=== PATIENT | male | born 1980 | race Caucasian/White ===

== ENCOUNTER 2024-05-21 15:12 | Emergency (ER) | payer SELFPAY ==
[2024-05-21 15:28] VITALS: BP 126/81; PULSE 62; RESP 17; TEMP 98.6; BMI 25.0
[2024-05-21 17:02] LABS: PH,URINE 5.5 (5.0-8.0); URINE APPEARANCE CLEAR; URINE BILIRUBIN NEGATIVE (NEGATIVE); URINE COLOR YELLOW; URINE GLUCOSE (UA) NEGATIVE (NEGATIVE); URINE KETONE NEGATIVE (NEGATIVE); URINE LEUK ESTERASE NEGATIVE (NEGATIVE); URINE NITRITE NEGATIVE (NEGATIVE); URINE PROTEIN NEGATIVE (NEGATIVE); URINE UROBILINOGEN 0.2 mg/dL (0.2-1.0)
[2024-05-21 18:01] LABS: BASO % 0.7 % (0-2.0); EOS % 1.3 % (0-4.5); HEMATOCRIT 43.5 % (35.4-49); HEMOGLOBIN 14.5 GM/dL (11.7-16.9); LYMPH % 26.1 % (8-40); MCH 30.6 pg (25.7-33.7); MCHC 33.4 g/dl (32.0-35.9); MEAN CELL VOLUME 91.8 fl (80-96); MEAN PLT VOLUME 8.3 fl (7.5-11.1); MONO % 5.2 % (3.8-10.2); NEUT % 66.7 % (42.8-82.8); PLATELET COUNT 252 10^3/uL (134-434); RBC 4.74 M/mm3 (4.00-5.60); RDW 13.5 % (11.9-15.9); WHITE BLOOD COUNT 7.7 K/mm3 (4.0-10.0)
[2024-05-21 18:21] LABS: POTASSIUM 3.7 mmol/L (3.5-5.1)
[2024-05-21 18:24] LABS: ALBUMIN 4.3 g/dl (3.4-5.0); BLOOD UREA NITROGEN 14.1 mg/dL (7-18)
[2024-05-21 18:27] LABS: CREATININE 0.9 mg/dL (0.55-1.3)
[2024-05-21 18:28] LABS: BILIRUBIN,TOTAL 0.5 mg/dL (0.2-1); TOT PROT 7.2 g/dl (6.4-8.2)
== END 2024-05-21 22:05 | disposition home or self-care (01) ==
LOC: JER 15:12
DX: I86.1 Scrotal varices (principal); K40.91 Unilateral inguinal hernia, without obstruction or gangrene, recurrent
CPT/HCPCS: 36415; 74177-TC; 76870-TC; 80053; 81003; 83605; 85025; 87086; 87491; 87591; 99285-25; Q9967

== ENCOUNTER 2024-08-08 04:13 | Day surgery (SDC) | payer OTHER ==
[2024-08-06 15:16] VITALS: BMI 23.8
[2024-08-08] MEDS ORDERED: BUPIVACAINE HCL/PF 0.25% (2.5MG/ML) 10 ML VIAL ONE (07:20)
[2024-08-08] MEDS ORDERED: LIDOCAINE HCL/PF 2% SDV 5ML VIAL ONE (07:43)
[2024-08-08] MEDS ORDERED: SUCCINYLCHOLINE CHLORIDE 200 MG/10 ML SYRINGE ONE (07:43)
[2024-08-08] MEDS ORDERED: DEXAMETHASONE SOD PHOSPHATE 4 MG/1 ML VIAL ONE (07:43)
[2024-08-08] MEDS ORDERED: ONDANSETRON 4 MG/2 ML VIAL ONE (07:43)
[2024-08-08] MEDS ORDERED: MIDAZOLAM HCL 2 MG/2 ML SINGLE DOSE VIAL ONE (07:43)
[2024-08-08] MEDS ORDERED: ROCURONIUM BROMIDE 50 MG/5 ML SYRINGE ONE ×2 (07:43→09:39)
[2024-08-08] MEDS ORDERED: PROPOFOL 20 ML ONE (07:43)
[2024-08-08] MEDS: ceFAZolin 2 GRAM PREMIX BAG IVPB ONE (08:13)
[2024-08-08] MEDS: BUPIVACAINE HCL/PF 0.25% (2.5MG/ML) 10 ML VIAL IJ ONE ×2 (08:30)
[2024-08-08] MEDS ORDERED: ACETAMINOPHEN INJECTION 100 ML ONE (09:23)
[2024-08-08] MEDS ORDERED: oxyCODONE HCL 5 MG TABLET PO PRN (10:29)
[2024-08-08] MEDS ORDERED: ONDANSETRON 4 MG/2 ML VIAL IVPUSH PRN (10:29)
[2024-08-08] MEDS ORDERED: SUGAMMADEX SODIUM 200 MG/2 ML VIAL ONE (11:17)
[2024-08-08 15:35] VITALS: RESP 18
[2024-08-08 15:50] VITALS: BP 113/70; PULSE 75; TEMP 98.4
== END 2024-08-08 15:45 | disposition home or self-care (01) ==
LOC: JASU-SURG 04:13
PROVIDERS: ATTEND Surgery
PROC: 3E0M45Z Introduction of Adhesion Barrier into Peritoneal Cavity, Percutaneous Endoscopic Approach (ICD-10-PCS; 2024-08-08)
PROC: 8E0W4CZ Robotic Assisted Procedure of Trunk Region, Percutaneous Endoscopic Approach (ICD-10-PCS; 2024-08-08)
PROC: 0YU64JZ Supplement Left Inguinal Region with Synthetic Substitute, Percutaneous Endoscopic Approach (ICD-10-PCS; principal; 2024-08-08 08:00)
DX: K40.90 Unilateral inguinal hernia, without obstruction or gangrene, not specified as recurrent (principal)
CPT/HCPCS: 49650; S2900; 86850; 86900; 86901; 94760; C1781; J0131